=== PATIENT | male | born 1930 | race Caucasian/White ===

== ENCOUNTER → 2016-10-07 | Outpatient (CLI) | payer OTHER | LOC: BMCIMAGING 12:18 | PROVIDERS: ATTEND Internal Medicine | DX: M24.852 Other specific joint derangements of left hip, not elsewhere classified (principal); M51.86 Other intervertebral disc disorders, lumbar region ==

== ENCOUNTER → 2017-01-04 | Outpatient (CLI) | payer OTHER ==
[~2017-01-04] MED LIST: IOPAMIDOL (ISOVUE-300) 100 ML BTL ONE
== END ==
LOC: FIMAGING 13:57
PROVIDERS: ATTEND Internal Medicine
DX: R53.81 Other malaise (principal); R63.4 Abnormal weight loss; R10.9 Unspecified abdominal pain
CPT/HCPCS: 74177; Q9967